=== PATIENT | female | born 1970 | race Caucasian/White ===

== ENCOUNTER 2022-08-08 20:51 | Emergency (ER) | payer OTHER ==
[2022-08-08 21:44] LABS: Absolute Lymphocytes (CBC) 2.7 K/uL (0.7-4.9); Hematocrit 39.8 % (36.0-45.0); Lymphocytes % 33.7 % (15.3-44.8); MCV 94.5 fL (80-100); MPV 7.4 fL (7.6-11.3); RBC Red Blood Cell Count 4.22 M/uL (3.86-4.86)
--- NOTE | 2022-08-08 21:46 | RAD REPORT ---
EXAM DESCRIPTION: RAD - Chest Single View - 08/08/2022 9:38 pm CLINICAL HISTORY: CHEST PAIN COMPARISON: None TECHNIQUE: AP portable chest image was obtained 08/08/2022 9:38 pm . FINDINGS: Lungs are clear. Heart and vasculature are normal. No measurable pleural effusion and no p neumothorax. No acute bony abnormality seen. No acute aortic findings suspected. IMPRESSION: No acute cardiopulmonary process.
[2022-08-08 22:06] LABS: ALT/SGPT 31 U/L (12-78); AST/SGOT 18 U/L (15-37); Alkaline Phosphatase 65 U/L (45-117); BUN Blood Urea Nitrogen 22 mg/dL (7-18); Bicarbonate 26 mmol/L (21-32); Bilirubin Direct 0.1 mg/dL (0-0.2); Bilirubin Total 0.4 mg/dL (0.2-1.0); Glomerular Filtration Rate 80 ml/min (=/>90); Glucose Level 94 mg/dL (74-106); Magnesium 2.1 mg/dL (1.8-2.4); NT PRO-BNP 36 pg/mL (<125); Potassium 3.8 mmol/L (3.5-5.1); Protein, Total 7.1 g/dL (6.4-8.2); Sodium Level 141 mmol/L (136-145)
[2022-08-08 22:15] LABS: Troponin High Sensitivity < 3.0 pg/mL (<58.9)
--- NOTE | 2022-08-09 00:21 | EDPHYS ---
Physician Documentation [facility] Name: Mitzy Estarda Age: 52 yrs Sex: Female : 1970 Arrival Date: 08/08/2022 Time: 20:56 Bed 13 Private MD: ED Physician Andrew Joseph HPI: 08/08 22:58 This 52 yrs old Female presents to ER via Ambulatory with complaints of Shoulder Pain. kb 22:58 The patient or guardian reports chest pain that is located primarily in the left kb lateral anterior chest. Onset: today, at 17:00. The pain radiates to the left shoulder. Associated signs and symptoms: The patient has no apparent associated signs or symptoms. The chest pain is described as aching. Duration: The patient or guardian reports a single episode. Modifying factors: The symptoms are alleviated by nothing. the symptoms are aggravated by nothing. Severity of pain: At its worst the pain was moderate in the emergency department the pain is unchanged. The patient has not experienced similar symptoms in the past. The patient has not recently seen a physician. Pt reports left lateral chest pain that started today at 1700. . Historical: - Allergies: 21:03 No Known Allergies; as6 - Home Meds: 21:03 atorvastatin oral [Active]; as6 - PMHx: 21:03 Hypercholesterolemia; as6 - PSHx: 21:03 Appendectomy; Cholecystectomy; as6 - Immunization history:: Client reports receiving the 2nd dose of the Covid vaccine, moderna. - Social history:: Smoking status: Patient reports the use of cigarette tobacco products, smokes one pack cigarettes per day. ROS: 22:57 Constitutional: Negative for fever, chills, and weight loss. kb 22:57 Cardiovascular: Positive for chest pain, Negative for edema, orthopnea, palpitations, paroxysmal nocturnal dyspnea. 22:57 MS/extremity: Positive for pain, of the anterior aspect of left shoulder. 22:57 All other systems are negative. Exam: 21:15 Constitutional: This is a well developed, well nourished patient who is awake, alert, kb and in no acute distress. Head/Face: Normocephalic, atraumatic. ENT: Moist Mucous membranes Chest/axilla: Normal chest wall appearance and motion. Cardiovascular: Regular rate and rhythm with a normal S1 and S2. No gallops, murmurs, or rubs. No pulse deficits. Respiratory: Respirations even and unlabored. No increased work of breathing. Talking in full sentences Abdomen/GI: Soft, non-tender. No distention Skin: Warm, dry with normal turgor. Normal color. MS/ Extremity: Pulses equal, no cyanosis. Neurovascular intact. Full, normal range of motion. Neuro: Awake and alert, GCS 15, oriented to person, place, time, and situation. Moves all extremities. Normal gait. Psych: Awake, alert, with orientation to person, place and time. Behavior, mood, and affect are within normal limits. 21:15 ECG was reviewed by the Attending Physician. 08/09 00:18 ECG was reviewed by the Attending Physician. kb Vital Signs: 08/08 21:01 BP 132 / 87; Pulse 84; Resp 18 S; Temp 98.6(O); Pulse Ox 98% on R/A; Weight 63.5 kg as6 (R); Height 5 ft. 3 in. (160.02 cm) (R); Pain 4/10; 08/09 00:43 BP 100 / 78; Pulse 68; Resp 14; Pulse Ox 98% on R/A; ja4 08/08 21:01 Body Mass Index 24.80 (63.50 kg, 160.02 cm) as6 MDM: 08/08 21:08 Patient medically screened. kb 22:57 Data reviewed: vital signs, nurses notes. Data interpreted: Pulse oximetry: on room air kb is 98 %. Interpretation: normal. 08/09 00:19 Counseling: I had a detailed discussion with the patient and/or guardian regarding: the kb historical points, exam findings, and any diagnostic results supporting the discharge/admit diagnosis, lab results, radiology results, the need for outpatient follow up, a family practitioner, to return to the emergency department if symptoms worsen or persist or if there are any questions or concerns that arise at home. 08/08 21:08 Order name: Basic Metabolic Panel; Complete Time: 22:26 kb 08/08 21:08 Order name: CBC with Diff; Complete Time: 21:51 kb 08/08 21:08 Order name: LFT's; Complete Time: 22:26 kb 08/08 21:08 Order name: Magnesium; Complete Time: 22:26 kb 08/08 21:08 Order name: NT PRO-BNP; Complete Time: 22:26 kb 08/08 21:08 Order name: Troponin HS; Complete Time: 22:26 kb 08/08 21:08 Order name: XRAY Chest (1 view); Complete Time: 21:51 kb 08/08 21:08 Order name: EKG; Complete Time: 21:09 kb 08/08 21:08 Order name: Cardiac monitoring; Complete Time: 21:29 kb 08/08 21:08 Order name: EKG - Nurse/Tech; Complete Time: 21:13 kb 08/08 21:08 Order name: Labs collected and sent; Complete Time: 21:29 kb 08/08 23:08 Order name: Troponin High Sensitivity; Complete Time: 00:08 ja4 08/08 21:08 Order name: O2 Per Protocol; Complete Time: 21:29 kb 08/08 21:08 Order name: O2 Sat Monitoring; Complete Time: 21:29 kb 08/09 00:08 Order name: EKG - Nurse/Tech kb EC/08 21:15 Rate is 75 beats/min. Rhythm is regular. QRS Bailey is Normal. OK interval is normal at kb 148 msec. QRS interval is normal at 80 msec. QT interval is normal at 448 msec. 08/09 00:18 Rate is 61 beats/min. Rhythm is regular. QRS Bailey is Normal. OK interval is normal at kb 142 msec. QRS interval is normal at 78 msec. QT interval is normal at 438 msec. Administered Medications: No medications were administered Disposition: 00:52 Co-signature as Attending Physician, Andrew Joseph MD. rn Disposition Summary: 08/09/22 00:20 Discharge Ordered Location: Home kb Condition: Stable kb Diagnosis - Chest pain, unspecified kb Followup: kb - With: Emergency Department - When: As needed - Reason: Worsening of condition Followup: kb - With: Private Physician - When: 2 - 3 days - Reason: Recheck today's complaints, Continuance of care, Re-evaluation by your physician Discharge Instructions: - Discharge Summary Sheet kb - Nonspecific Chest Pain, Adult, [id number] kb Forms: - Medication Reconciliation Form kb - Thank You Letter kb - Antibiotic Education kb - Prescription Opioid Use kb Signatures: Dispatcher [employer] EDKY María Burgess, HEARING AID MECHANIC-C HEARING AID MECHANIC-Ckb Andrew Joseph MD MD rn Slawson, Ashby, RN RN as6 Corrections: (The following items were deleted from the chart) 08/08 21:41 21:08 IV Saline Lock ordered. kb ja4
--- NOTE | 2022-08-09 00:21 | ER ---
Nurse's Notes [facility] Name: Mitzy Estrada Age: 52 yrs Sex: Female : 1970 Arrival Date: 08/08/2022 Time: 20:56 Bed 13 Private MD: Diagnosis: Chest pain, unspecified Presentation: 08/08 21:01 Chief complaint: Patient states: "I am having this pain that starts in my chest and as6 goes down my left arm. I told my and now I'm worried I'm having a heart attack". Coronavirus screen: At this time, the client does not indicate any symptoms associated with coronavirus-19. Ebola Screen: No symptoms or risks identified at this time. Initial Sepsis Screen: Does the patient meet any 2 criteria? No. Patient's initial sepsis screen is negative. Does the patient have a suspected source of infection? No. Patient's initial sepsis screen is negative. Risk Assessment: Do you want to hurt yourself or someone else? Patient reports no desire to harm self or others. Onset of symptoms was August 08, 2022 at 17:00. 21:01 Method Of Arrival: Ambulatory as6 21:01 Acuity: JOLLY 3 as6 Triage Assessment: 21:04 General: Appears in no apparent distress. Behavior is calm, cooperative. Pain: as6 Complains of pain in chest Pain radiates to left arm. Historical: - Allergies: 21:03 No Known Allergies; as6 - Home Meds: 21:03 atorvastatin oral [Active]; as6 - PMHx: 21:03 Hypercholesterolemia; as6 - PSHx: 21:03 Appendectomy; Cholecystectomy; as6 - Immunization history:: Client reports receiving the 2nd dose of the Covid vaccine, moderna. - Social history:: Smoking status: Patient reports the use of cigarette tobacco products, smokes one pack cigarettes per day. Screenin:47 Abuse screen: Denies threats or abuse. Nutritional screening: No deficits noted. ja4 Tuberculosis screening: No symptoms or risk factors identified. Assessment: 21:47 General: Appears in no apparent distress. slender, Behavior is calm, cooperative, ja4 appropriate for age. Pain: Complains of pain in left arm Pain currently is 3 out of 10 on a pain scale. Pain began 4 hours ago. Neuro: No deficits noted. Cardiovascular: Denies chest pain. Vital Signs: 21:01 BP 132 / 87; Pulse 84; Resp 18 S; Temp 98.6(O); Pulse Ox 98% on R/A; Weight 63.5 kg as6 (R); Height 5 ft. 3 in. (160.02 cm) (R); Pain 4/10; 08/09 00:43 BP 100 / 78; Pulse 68; Resp 14; Pulse Ox 98% on R/A; ja4 08/08 21:01 Body Mass Index 24.80 (63.50 kg, 160.02 cm) as6 ED Course: 08/08 20:56 Patient arrived in ED. bp1 20:59 María Burgess F[facility]-C [facility] kb 21:00 Andrew Joseph MD is Attending Physician. kb 21:03 Triage completed. as6 21:04 Arm band placed on. as6 21:13 EKG completed in triage. Results shown to MD. as6 21:35 Hector Heart, RN is Primary Nurse. ja4 21:40 XRAY Chest (1 view) In Process Unspecified. EDMS 21:47 Bed in low position. Call light in reach. Adult w/ patient. ja4 21:47 No provider procedures requiring assistance completed. ja4 Administered Medications: No medications were administered Medication: 21:47 VIS not applicable for this client. ja4 Outcome: 08/09 00:20 Discharge ordered by MD. kb 00:43 Discharged to home ambulatory. ja4 00:43 Condition: stable 00:43 Discharge instructions given to patient, Instructed on discharge instructions, follow up and referral plans. medication usage. 00:45 Patient left the ED. ja4 Signatures: Dispatcher [employer] EDNV María Burgess FNP-C FNP-Jayshree Sheehan Ashby, RN RN as6 Hector Heart, [place] RN gloria4
[2022-08-09 03:38] VITALS: TEMP 98.6; O2SAT 98
[2022-08-09 03:40] VITALS: BP 100/78
--- NOTE | 2022-08-09 13:55 | EKG ---
Test Date: 2022-08-09 Test Time: 00:11:47 Social Media Intern: ALLI MEASUREMENT RESULTS: Intervals: Rate: 61 TN: 142 QRSD: 78 QT: 436 QTc: 438 [place]: P: 36 TN: 142 QRS: 65 T: 48 INTERPRETIVE STATEMENTS: Normal sinus rhythm Low voltage QRS Borderline ECG Compared to ECG 08/08/2022 21:06:35 Low QRS voltage now present ST (T wave) deviation no longer present Electronically Signed On 08-09-22 13:55:07 CDT by Robbie Anderson
--- NOTE | 2022-08-09 13:56 | EKG ---
Test Date: 2022-08-08 Test Time: 21:06:35 Relations Specialist: NEREYDA MEASUREMENT RESULTS: Intervals: Rate: 75 MN: 148 QRSD: 80 QT: 402 QTc: 448 [place]: P: 65 MN: 148 QRS: 60 T: 66 INTERPRETIVE STATEMENTS: Normal sinus rhythm Nonspecific ST abnormality Abnormal ECG No previous ECG available for comparison Electronically Signed On 08-09-22 13:55:12 CDT by Robbie Anderson
== END 2022-08-09 00:45 | disposition home or self-care (01) ==
LOC: ER 20:51
DX: R07.89 Other chest pain (principal); M25.512 Pain in left shoulder; F17.210 Nicotine dependence, cigarettes, uncomplicated
CPT/HCPCS: 36415; 71045; 80048; 80076; 83735; 83880; 84484; 85025; 93005; 99283